=== PATIENT | female | born 2000 | race Two or more races ===

== ENCOUNTER 2022-05-21 00:48 | Observation (INO) ==
[2022-05-21] MEDS ORDERED: ACETAMINOPHEN 1,000 MG/100 ML VIAL IV STA (01:13)
[2022-05-21] MEDS ORDERED: ONDANSETRON INJ 2 MG/ML 2 ML VIAL IV STA ×2 (01:13→02:58)
[2022-05-21] MEDS ORDERED: MoRPHine SULFATE 4 MG/ML 1 ML CARP\\VIAL IV PRN (01:13)
[2022-05-21] MEDS ORDERED: SODIUM CHLORIDE 0.9% 1000ML 1,000 ML IV SCH (01:15)
[2022-05-21 01:46] LABS: Basophils # (auto) 0.06 K/uL (0-0.2); Basophils % (auto) 0.4 %; Hematocrit (blood only) 41.8 % (34.1-44.9); Hemoglobin 13.9 g/dl (12.0-16.0); Immature Granulocytes # (auto) 0.07 K/uL (0.00-0.02); Immature Granulocytes % (auto) 0.4 %; Lymphocytes # (auto) 0.94 K/uL (1.2-3.4); Lymphocytes % (auto) 5.8 %; Mean Corpuscular Hemoglobin 28.5 pg (25.0-34.0); Mean Corpuscular Hgb Conc 33.3 g/dL (32.0-36.0); Mean Corpuscular Volume 85.8 fL (80.0-100.0); Mean Platelet Volume 9.6 fL (9.4-12.3); Monocytes # (auto) 1.07 K/uL (0.24-0.82); Monocytes % (auto) 6.6 %; Neutrophils # (auto) 14.04 K/uL (1.4-6.5); Neutrophils % (auto) 86.8 %; Platelet Count 250 K/uL (130-400); RDW Coefficient of Variation 12.3 % (11.5-14.5); RDW Standard Deviation 38.7 fL (36.4-46.3); Red Blood Count 4.87 M/uL (3.93-5.22); White Blood Count 16.18 K/ul (4.8-10.8)
[2022-05-21 02:04] LABS: Appearance Urine Cloudy (Clear); Bacteria Urine Automated 1+ (Negative); Bilirubin Urine Negative (Negative); Blood Urine Negative (Negative); Color Urine Yellow; Epithelial Cell Urine Auto >30 /lpf (0-5); Glucose Urine UA Negative (Negative); Ketones Urine 2+ (Negative); Leukocyte Esterase Urine 2+ (Negative); Nitrite Urine Negative (Negative); Protein Urine 1+ (Negative); RBC Urine Automated 0-4 /hpf (0-4); Urobilinogen Urine Negative (Negative); WBC Urine Automated >30 /hpf (0-5)
[2022-05-21 02:09] LABS: Albumin Globulin Ratio 1.3 (0.9-2); Albumin Level 4.4 gm/dl (3.4-5.0); BUN Creatinine Ratio 8.2 (10-20); Bilirubin,Total 0.6 mg/dl (0.2-1.0); Calcium 9.6 mg/dl (8.5-10.1); Est GFR (African American) 97.4 ml/min; Est GFR (Non-African American) 84.1 ml/min; Globulin 3.4 gm/dl (2.5-4.0); Potassium 4.1 mmol/L (3.5-5.1); Total Protein 7.8 gm/dl (6.0-8.3)
[2022-05-21 02:14] LABS: Pregnancy Test, Serum Negative (Negative)
[2022-05-21 02:23] LABS: Procalcitonin 0.09 ng/ml (0-0.5)
[2022-05-21 02:29] LABS: Amphetamines+Metham, Urine Neg (Neg); Barbiturates, Urine Neg (Neg); Benzodiazepine, Urine Neg (Neg); Cocaine, Urine Neg (Neg); MDMA (Ecstacy), Urine Neg (Neg); Methadone, Urine Neg (Neg); Opiate, Urine Neg (Neg); Phencyclidine, Urine Neg (Neg)
[2022-05-21 03:06] LABS: Influenza A virus by PCR Negative (Neg); Influenza B virus by PCR Negative (Neg); RSV by PCR Negative (Neg); SARS CoV2 RNA(COVID-19) Ceph NEGATIVE (Negative)
[2022-05-21] MEDS ORDERED: OPTIRAY 350 100ml IV ONE (03:21)
--- NOTE | 2022-05-21 03:31 | Emergency Department Note ---
History of Present Illness General Chief complaint: Abdominal Pain Stated complaint: SEVERE ABDOMINAL PAIN Time Seen by Provider: 05/21/22 00:55 History of Present Illness Maximum Pain Intensity: 3 This is a 21-year-old female presenting to the emergency department for evaluation of lower abdominal pain for the past 1 day. The patient states that she initially started with some low-grade fever symptoms about 3 days ago, and did not have significant relief with [id number]-[id number] medication. She has not had nausea or vomiting. She feels like she is using the bathroom as normal. No vaginal irritation, drainage, or discharge. She does not have a history of abdominal surgery. She rates her discomfort a 3/10. Home Medications Medication Instructions Recorded Confirmed Type norethindrone 1 mg-ethinyl 1 tab PO DAILY 05/21/22 05/21/22 History estradiol 35 mcg tablet (Alyacen) Allergies Allergy/AdvReac Type Severity Reaction Status Date / Time amoxicillin Allergy Intermediate Rash Verified 05/21/22 01:08 benzoyl peroxide Allergy Intermediate FACE SWELLS Verified 05/21/22 01:08 FRUITS & VEGETABLES Allergy Unknown ORAL Uncoded 05/21/22 01:08 ALLERGY SYNDROME Past Med/Surg History Medical History No significant past medical history Surgical History No significant past surgical history Social History Smoking Status: Never smoker Preferred Language: [place] African Feels Safe at Home: Yes Review of Systems A total of 10 systems reviewed and were otherwise negative Physical Exam Vital Signs Vital Signs - 24 hr 05/21/22 00:51 05/21/22 03:34 Temperature 37.9 C H Temperature Source Oral Pulse Rate 119 H Pulse Rate [Apical] 90 Respiratory Rate 20 16 Respiratory Effort / Characteristics Non-Labored Spontaneous Non-Labored Spontaneous Respiratory Depth Normal Normal Respiratory Pattern Regular Blood Pressure 119/76 Blood Pressure [Right Arm] 115/62 Blood Pressure Mean 90 Blood Pressure Mean [Right Arm] 79 Pulse Oximetry 100 97 Oxygen Delivery Method Room Air Room Air Sepsis Recent Fever Within 48 Hours Yes Sepsis New/Unexplained Change in Mental Status N/A Sepsis Action Taken by Nursing No Action Required VITALS: Vitals are noted on the nurse's note and reviewed by myself. Vital signs with fever and tachycardia GENERAL: Well-developed, well-nourished, white female, who is in no acute distress and resting comfortably. Patient is cooperative with the examination. HEAD: Normocephalic atraumatic. NECK: Supple without nuchal rigidity. No lymphadenopathy. No thyromegaly. Cervical spine is nontender. HEART: Regular rate and rhythm without murmurs gallops or rubs. LUNGS: Clear to auscultation bilaterally without wheezes, rales or rhonchi. No retractions or accessory muscle use. ABDOMEN: Positive normal bowel sounds x 4. Soft with mild tenderness in both the right lower and suprapubic regions. No left-sided tenderness or epigastric tenderness. No CVA tenderness. MUSCULOSKELETAL: No muscle atrophy, erythema, or edema noted. Full range of motion in all extremities. NEURO: Patient was alert and oriented to person place and time. CN II through XII grossly intact. Course Administered Medications Morphine Sulfate (Morphine Sulfate 4 Mg/Ml 1 Ml Carp\Vial) 4 mg IV Q30M PRN PRN Reason: Pain Stop: 06/04/22 01:12 Last Admin: 05/21/22 01:32 Dose: 4 mg Documented By: SHITAL Discontinued Medications Acetaminophen (Ofirmev) 1,000 mg in 100 mls @ 400 mls/hr IV NOW STA Stop: 05/21/22 01:27 Last Infusion: 05/21/22 03:26 Dose: 0 mls/hr Documented By: morning news anchor: 05/21/22 01:33 Dose: 400 mls/hr Documented By: SHITAL Sodium Chloride (Nss 1000ml) 1,000 mls @ 999 mls/hr IV .Q1H1M LUIGI Stop: 05/21/22 02:15 Last Infusion: 05/21/22 03:26 Dose: 0 mls/hr Documented By: morning news anchor: 05/21/22 01:32 Dose: 999 mls/hr Documented By: SHITAL Ioversol (Optiray 350 100ml) 100 ml IV ONCE ONE Stop: 05/21/22 03:22 Last Admin: 05/21/22 03:21 Dose: 86 ml Documented By: SHARI Ondansetron HCl (Ondansetron Inj 2 Mg/Ml 2 Ml Vial) 4 mg IV NOW STA Stop: 05/21/22 01:14 Last Admin: 05/21/22 01:34 Dose: 4 mg Documented By: SHITAL Ondansetron HCl (Ondansetron Inj 2 Mg/Ml 2 Ml Vial) 4 mg IV NOW Stop: 05/21/22 02:59 Last Admin: 05/21/22 03:02 Dose: 4 mg Documented By: SCAR Medical Decision Making Differential Diagnosis Differential diagnosis: Etiologies such as biliary colic, cholecystitis, hepatitis, pancreatitis, cardiac disease, pancreatitis, gastritis, peptic ulcer disease, appendicitis, cystitis, diverticulitis, mesenteric ischemia, inflammatory bowel disease, ileus, bowel obstruction, testicular/adnexal torsion, aortic pathology, loaiza gles, as well as others were considered Laboratory Data 05/21/22 01:30 05/21/22 01:30 Lab Results 05/21/22 05/21/22 05/21/22 Range/Units 01:16 01:16 01:24 WBC (4.8-10.8) K/ul RBC (3.93-5.22) M/uL Hgb (12.0-16.0) g/dl Hct (34.1-44.9) % MCV (80.0-100.0) fL MCH (25.0-34.0) pg MCHC (32.0-36.0) g/dL RDW Std Deviation (36.4-46.3) fL RDW Coeff of Martha (11.5-14.5) % Plt Count (130-400) K/uL MPV (9.4-12.3) fL Immature Gran % (Auto) % Neut % (Auto) % Lymph % (Auto) % [place] % (Auto) % Eos % (Auto) % Baso % (Auto) % Neut # (Auto) (1.4-6.5) K/uL Lymph # (Auto) (1.2-3.4) K/uL [place] # (Auto) (0.24-0.82) K/uL Eos # (Auto) (0-0.50) K/uL Baso # (Auto) (0-0.2) K/uL Immature Gran # (Auto) (0.00-0.02) K/uL Sodium (136-145) mmol/L Potassium (3.5-5.1) mmol/L Chloride (98-107) mmol/L Carbon Dioxide (21-32) mmol/L Anion Gap (3-11) BUN (6-23) mg/dl Creatinine (0.6-1.2) mg/dl Est Cr Clr Drug Dosing ml/min Est GFR ( Amer) ml/min Est GFR (Non-Af Amer) ml/min BUN/Creatinine Ratio (10-20) Glucose (70-99(Fasting)) mg/dl Lactate (0.4-2.0) mmol/L Calcium (8.5-10.1) mg/dl Total Bilirubin (0.2-1.0) mg/dl AST (13-39) U/L ALT (7-52) U/L Alkaline Phosphatase (34-104) U/L Total Protein (6.0-8.3) gm/dl Albumin (3.4-5.0) gm/dl Globulin (2.5-4.0) gm/dl Albumin/Globulin Ratio (0.9-2) Lipase (11-82) U/L Procalcitonin (0-0.5) ng/ml HCG, Qual (Negative) Urine Color Yellow Urine Appearance Cloudy A (Clear) Urine pH 6.0 (4.5-7.5) Ur Specific [place] 1.020 (1.000-1.030) Urine Protein 1+ H (Negative) Urine Glucose (UA) Negative (Negative) Urine Ketones 2+ H (Negative) Urine Blood Negative (Negative) Urine Nitrite Negative (Negative) Urine Bilirubin Negative (Negative) Urine Urobilinogen Negative (Negative) Ur Leukocyte Esterase 2+ H (Negative) Urine WBC (Auto) >30 H (0-5) /hpf Urine RBC (Auto) 0-4 (0-4) /hpf U Hyaline Cast (Auto) 10-30 H (0-5) /lpf U Epithel Cells (Auto) >30 H (0-5) /lpf Urine Bacteria (Auto) 1+ H (Negative) Urine Opiates Screen Neg (Neg) Ur Methadone, Qual Neg (Neg) Urine Barbiturates Neg (Neg) Ur Phencyclidine (PCP) Neg (Neg) U Amphetamin/Meth Scrn Neg (Neg) MDMA (Ecstasy) Screen Neg (Neg) U Benzodiazepines Scrn Neg (Neg) Ur Cocaine Metabolite Neg (Neg) U Marijuana (THC) Screen Neg (Neg) SARS-CoV-2 (PCR) NEGATIVE (Negative) Influenza Type A (PCR) Negative (Neg) Influenza Type B (PCR) Negative (Neg) RSV (RT-PCR) Negative (Neg) 05/21/22 05/21/22 05/21/22 Range/Units 01:30 01:30 01:30 WBC 16.18 H (4.8-10.8) K/ul RBC 4.87 (3.93-5.22) M/uL Hgb 13.9 (12.0-16.0) g/dl Hct 41.8 (34.1-44.9) % MCV 85.8 (80.0-100.0) fL MCH 28.5 (25.0-34.0) pg MCHC 33.3 (32.0-36.0) g/dL RDW Std Deviation 38.7 (36.4-46.3) fL RDW Coeff of Martha 12.3 (11.5-14.5) % Plt Count 250 (130-400) K/uL MPV 9.6 (9.4-12.3) fL Immature Gran % (Auto) 0.4 % Neut % (Auto) 86.8 % Lymph % (Auto) 5.8 % [place] % (Auto) 6.6 % Eos % (Auto) 0.0 % Baso % (Auto) 0.4 % Neut # (Auto) 14.04 H (1.4-6.5) K/uL Lymph # (Auto) 0.94 L (1.2-3.4) K/uL [place] # (Auto) 1.07 H (0.24-0.82) K/uL Eos # (Auto) 0.00 (0-0.50) K/uL Baso # (Auto) 0.06 (0-0.2) K/uL Immature Gran # (Auto) 0.07 H (0.00-0.02) K/uL Sodium 136 (136-145) mmol/L Potassium 4.1 (3.5-5.1) mmol/L Chloride 102 (98-107) mmol/L Carbon Dioxide 26 (21-32) mmol/L Anion Gap 8 (3-11) BUN 8 (6-23) mg/dl Creatinine 0.97 (0.6-1.2) mg/dl Est Cr Clr Drug Dosing 90.0 ml/min Est GFR ( Amer) 97.4 ml/min Est GFR (Non-Af Amer) 84.1 ml/min BUN/Creatinine Ratio 8.2 L (10-20) Glucose 118 H (70-99(Fasting)) mg/dl Lactate 0.7 (0.4-2.0) mmol/L Calcium 9.6 (8.5-10.1) mg/dl Total Bilirubin 0.6 (0.2-1.0) mg/dl AST 12 L (13-39) U/L ALT 9 (7-52) U/L Alkaline Phosphatase 62 (34-104) U/L Total Protein 7.8 (6.0-8.3) gm/dl Albumin 4.4 (3.4-5.0) gm/dl Globulin 3.4 (2.5-4.0) gm/dl Albumin/Globulin Ratio 1.3 (0.9-2) Lipase 5 L (11-82) U/L Procalcitonin (0-0.5) ng/ml HCG, Qual (Negative) Urine Color Urine Appearance (Clear) Urine pH (4.5-7.5) Ur Specific [place] (1.000-1.030) Urine Protein (Negative) Urine Glucose (UA) (Negative) Urine Ketones (Negative) Urine Blood (Negative) Urine Nitrite (Negative) Urine Bilirubin (Negative) Urine Urobilinogen (Negative) Ur Leukocyte Esterase (Negative) Urine WBC (Auto) (0-5) /hpf Urine RBC (Auto) (0-4) /hpf U Hyaline Cast (Auto) (0-5) /lpf U Epithel Cells (Auto) (0-5) /lpf Urine Bacteria (Auto) (Negative) Urine Opiates Screen (Neg) Ur Methadone, Qual (Neg) Urine Barbiturates (Neg) Ur Phencyclidine (PCP) (Neg) U Amphetamin/Meth Scrn (Neg) MDMA (Ecstasy) Screen (Neg) U Benzodiazepines Scrn (Neg) Ur Cocaine Metabolite (Neg) U Marijuana (THC) Screen (Neg) SARS-CoV-2 (PCR) (Negative) Influenza Type A (PCR) (Neg) Influenza Type B (PCR) (Neg) RSV (RT-PCR) (Neg) 05/21/22 Range/Units 01:30 WBC (4.8-10.8) K/ul RBC (3.93-5.22) M/uL Hgb (12.0-16.0) g/dl Hct (34.1-44.9) % MCV (80.0-100.0) fL MCH (25.0-34.0) pg MCHC (32.0-36.0) g/dL RDW Std Deviation (36.4-46.3) fL RDW Coeff of Martha (11.5-14.5) % Plt Count (130-400) K/uL MPV (9.4-12.3) fL Immature Gran % (Auto) % Neut % (Auto) % Lymph % (Auto) % [place] % (Auto) % Eos % (Auto) % Baso % (Auto) % Neut # (Auto) (1.4-6.5) K/uL Lymph # (Auto) (1.2-3.4) K/uL [place] # (Auto) (0.24-0.82) K/uL Eos # (Auto) (0-0.50) K/uL Baso # (Auto) (0-0.2) K/uL Immature Gran # (Auto) (0.00-0.02) K/uL Sodium (136-145) mmol/L Potassium (3.5-5.1) mmol/L Chloride (98-107) mmol/L Carbon Dioxide (21-32) mmol/L Anion Gap (3-11) BUN (6-23) mg/dl Creatinine (0.6-1.2) mg/dl Est Cr Clr Drug Dosing ml/min Est GFR ( Amer) ml/min Est GFR (Non-Af Amer) ml/min BUN/Creatinine Ratio (10-20) Glucose (70-99(Fasting)) mg/dl Lactate (0.4-2.0) mmol/L Calcium (8.5-10.1) mg/dl Total Bilirubin (0.2-1.0) mg/dl AST (13-39) U/L ALT (7-52) U/L Alkaline Phosphatase (34-104) U/L Total Protein (6.0-8.3) gm/dl Albumin (3.4-5.0) gm/dl Globulin (2.5-4.0) gm/dl Albumin/Globulin Ratio (0.9-2) Lipase (11-82) U/L Procalcitonin 0.09 (0-0.5) ng/ml HCG, Qual Negative (Negative) Urine Color Urine Appearance (Clear) Urine pH (4.5-7.5) Ur Specific [place] (1.000-1.030) Urine Protein (Negative) Urine Glucose (UA) (Negative) Urine Ketones (Negative) Urine Blood (Negative) Urine Nitrite (Negative) Urine Bilirubin (Negative) Urine Urobilinogen (Negative) Ur Leukocyte Esterase (Negative) Urine WBC (Auto) (0-5) /hpf Urine RBC (Auto) (0-4) /hpf U Hyaline Cast (Auto) (0-5) /lpf U Epithel Cells (Auto) (0-5) /lpf Urine Bacteria (Auto) (Negative) Urine Opiates Screen (Neg) Ur Methadone, Qual (Neg) Urine Barbiturates (Neg) Ur Phencyclidine (PCP) (Neg) U Amphetamin/Meth Scrn (Neg) MDMA (Ecstasy) Screen (Neg) U Benzodiazepines Scrn (Neg) Ur Cocaine Metabolite (Neg) U Marijuana (THC) Screen (Neg) SARS-CoV-2 (PCR) (Negative) Influenza Type A (PCR) (Neg) Influenza Type B (PCR) (Neg) RSV (RT-PCR) (Neg) Imaging Data Radiologist's Impression: Preliminary Findings Only See Final Report For Complete Findings CT ABDOMEN & PELVIS With Contrast: Mildly enlarged fluid-filled appendix measuring 9 mm. However there is no surrounding inflammation in these findings are equivocal for acute appendicitis. Vague low density in the inferior liver is stable from prior CT of 01/17/2022 Radiologist:Wale Mcclain M.D. [facility] Narrative Physical exam and history were performed. Nursing notes, EMR, and Medication List were personally reviewed. No social concerns were identified as barriers to patients care. Patient appears to have lower abdominal pain bringing her to the ER. She does have fever and tachycardia on arrival. IV access was established and labs were obtained. She was hydrated and medicated as above. Patient was prepped for CT scan with IV and oral contrast. Patient's blood work is as above and was reviewed. She does have an elevated white blood cell count of 16,000. She does not have a significant anemia or gross electrolyte imbalance. Glucose is 118. Lipase and transaminases are not diagnostic. She is not . Lactic is negative with blood cultures pending. Procalcitonin is normal. Urine is with ketones, esterase, white cells, and a large amount of epithelial cells. Culture is pending. Flu, COVID, and RSV testing is negative. As the patient was preparing for oral contrast she had a large amount of emesis and was given additional Zofran. At this time she was sent to CT scan as she would not be able to tolerate additional oral contrast. CT was reviewed by myself and radiology and is concerning for appendicitis. The appendix is 9 mm and radiology believes this is equivocal. Based on the patient's elevated white count, fever, and clinical exam findings I did reach out to the on-call surgical team. The patient was evaluated at bedside by surgical team. Please see their dictation for further patient course, plan, and patient disposition. The chart was completed utilizing [employer] Speech Voice Recognition Software. Grammatical errors, random word insertions, pronoun errors, and incomplete sentences are an occasional consequence of this system due to software limitations, ambient noise, and hardware issues. Any formal questions or concerns about the content, text, or information contained within the body of this dictation should be directly addressed to the provider for clarification. . Impression & Plan Appendicitis, Abdominal pain, RLQ, Fever Discharge Plan Visit Data Chief Complaint: Abdominal Pain Stated Complaint: SEVERE ABDOMINAL PAIN ED Provider: Coty Lezama ED Midlevel Provider: Pablo Canada Discharge Problem: Appendicitis, Abdominal pain, RLQ, Fever Forms Stand Alone Forms: [facility] [employer] Prescriptions Prescriptions: No Action Alyacen (28) 1-35 mg-mcg tablet 1 tab PO DAILY Referrals Referrals: [facility],[facility] [Primary Care Provider] -
[2022-05-21] MEDS ORDERED: ONDANSETRON INJ 2 MG/ML 2 ML VIAL IV PRN ×2 (04:26→12:23)
[2022-05-21] MEDS ORDERED: ACETAMINOPHEN 1,000 MG/100 ML VIAL IV PRN (04:26)
[2022-05-21] MEDS ORDERED: MoRPHine SULFATE 2 MG/ML CARP IV PRN (04:26)
--- NOTE | 2022-05-21 04:26 | History & Physical Report ---
Date of Service May 21, 2022 Assessment & Plan (1) Appendicitis: Plan: Due to the findings on patient's imaging along with her labs and clinical presentation we will admit her to the hospital proceeding as follows: We will implement n.p.o. status We will provide analgesics we will provide antiemetics We will initiate antibiotics. I will utilize Cipro and Flagyl as the patient has a unspecified reaction to amoxicillin. -We will provide IV fluid for hydration We will tenably plan on having the patient undergo an appendectomy with Dr. Anderson on 05/21/2022. 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 Patient notes that the pain began approximately 1 day ago and was in a generalized fashion mostly over her lower abdomen but is since now shifted mostly to the right lower quadrant. Patient notes that she has had associated nausea and vomiting. She also notes a low-grade fever. She has tried ryxx-grh-pfwahfw analgesics without relief and does not note any other modifying factors other than it hurts with certain movements. She denies any prior abdominal surgeries. She notes her most recent solid oral intake was approximately 6:00 PM on 05/20/2022 but she has had some water approximately 3 and half hours ago. Since arrival to the emergency department the patient has had labs and imaging which I independent reviewed. CT scan of the abdomen pelvis showed a mildly enlarged and fluid-filled appendix measuring 9 mm. No surrounding inflammation was noted and an acute appendicitis could not be ruled out on the study. Labs included CBC her white blood cell count was elevated 16.8. Hemoglobin, hematocrit, and platelet count were all within normal range. Chemistry profile showed sodium and potassium were normal. BUN and creatinine were also noted to be normal. There is no significant elevation of LFTs or lipase. A test was noted to be negative. Urinalysis did show greater than 30 white blood cells per high-power field and 1+ bacteria. Leukocyte esterase was 2+. Nitrites were negative. A COVID test was noted to be negative as well as serologies for influenza A, B, and RSV. A toxicology screen was negative for substances tested. The patient was noted to have low-grade fever in the emergency department of 37.9. At the time of my visit with the patient she was resting comfortably in bed in no distress. Allergies Allergy/AdvReac Type Severity Reaction Status Date / Time amoxicillin Allergy Intermediate Rash Verified 05/21/22 01:08 benzoyl peroxide Allergy Intermediate FACE SWELLS Verified 05/21/22 01:08 FRUITS & VEGETABLES Allergy Unknown ORAL Uncoded 05/21/22 01:08 ALLERGY SYNDROME Home Medications Medication Instructions Recorded Confirmed Type norethindrone 1 mg-ethinyl 1 tab PO DAILY 05/21/22 05/21/22 History estradiol 35 mcg tablet (Alyacen) Past Med/Surg History Medical History No significant past medical history Surgical History No significant past surgical history Social History Smoking Status: Never smoker Hx Alcohol Use: Yes Hx Substance Use: No Preferred Language: Rwandan Communication Ability: Effective Physicians And Surgeons Required: No Beliefs That Will Affect Care: None Current Living Situation Comment: apartment Other Information That Helps Us Care for You: No Feels Safe at Home: Yes Safety Concerns: Feels Safe At This Time Assistive Devices: Glasses Review of Systems Constitutional: + fever; no chills Eyes: no eye pain Ear, Nose, Mouth, Throat: no ear pain Respiratory: no cough Cardiovascular: no chest pain Gastrointestinal: + abdominal pain, + nausea and + vomiting Genitourinary: no dysuria Musculoskeletal: no back pain Integumentary: no rash Neurologic: no localized weakness Physical Exam Constitutional: WD/WN, vitals as above Eyes: no conjunctival abnormality ENMT: Ears: no hearing impairment and no external ear abnormality Mouth: no oropharynx abnormality Neck: trachea midline Respiratory: normal respiratory effort; no respiratory distress and no labored breathing Cardiovascular: Rate/Rhythm: regular rate and regular rhythm Vessels: dorsalis pedis pulses present and radial pulses present Gastrointestinal (Abdomen): Abdomen is soft and nondistended. It is nonrigid. Patient did have pain with palpation in the right lower quadrant over McBurney's point with some slight rebound tenderness. Musculoskeletal: No calf tenderness clinical coordinator please Skin: no rashes Neurologic: moves all extremities Psychiatric: A+Ox3, euthymic affect Results & Data Results & Data ([facility]) Vital Signs (Past 12 Hours) Vital Signs Temp Pulse Pulse Resp BP BP Pulse Ox 05/21/22 03:34 90 16 115/62 97 05/21/22 00:51 37.9 C H 119 H 20 119/76 100 O2 Del Method 05/21/22 03:34 Room Air 05/21/22 00:51 Room Air Supervising Physician Co-Signing Physician Notes Patient seen examined, labs image reviewed, agree with above. 21-year-old female with acute appendicitis on CT and exam. On exam she is afebrile stable vitals. Her abdomen is soft, tender to palpation in the right lower quadrant specifically at McBurney's point with localized guarding. CT personally viewed and interpreted and agree with the assessment of acute appendicitis without evidence of perforation. Plan for laparoscopic appendectomy Risk the procedure were discussed to include but not limited to bleeding, infection, open surgery, damage surrounding structures, need for future more extensive surgery, normal appendix, abscess, and the risk of anesthesia Likely discharge this afternoon Return precautions, activity restrictions, and wound care instructions given Patient will follow up in 2 weeks in general surgery clinic PG Care Time/CCT Total # of Minutes Spent Total Time Spent with Patient: Total time spent is greater than 50% in coordination of care (as documented) at patient's floor/unit and/or counseling patient: Coding Level of Care Code 65488 INT INP/OBS CARE 75MIN Diagnoses Appendicitis K37
[2022-05-21] MEDS ORDERED: metroNIDAZOLE 500 MG/100 ML BAG IV STA (04:47)
[2022-05-21] MEDS ORDERED: CIPROFLOXACIN / D5W 400 MG/200 ML BAG IV STA (04:48)
[2022-05-21] MEDS: LACTATED RINGER'S 1,000 ML IV SCH ×2 (05:21→17:07)
--- NOTE | 2022-05-21 07:47 | CT Scan Report ---
ABDOMEN AND PELVIS CT WITH IV AND ORAL CONTRAST CT DOSE: 313.53 mGy.cm HISTORY: RLQ and suprapubic pain, fever TECHNIQUE: Multiaxial CT images of the abdomen and pelvis were performed following the use of intrave nous and oral contrast. A dose lowering technique was utilized adhering to the principles of ALARA. COMPARISON STUDY: Abdomen and pelvis CT 01/17/2022. FINDINGS: The lung bases are clear. No pneumoperitoneum. No pneumatosis. Mild S-shaped scoliosis of t he thoracolumbar spine. No acute fractures identified. The appendix is identified within the right lo wer quadrant and is distended and filled with fluid. The appendix measures up to 1 cm in diameter. Th is is new from the prior study. Therefore, these findings are consistent with acute appendicitis. The bladder, uterus, bilateral adnexa are unremarkable. Subtle patchy hypodense area within segment 5 of the liver remain stable. This measures approximately 2.7 cm and is best seen image 191. The spleen, adrenal glands, pancreas, gallbladder, and kidneys are unremarkable. No hydronephrosis. No retroperit bhat lymphadenopathy. Normal caliber abdominal aorta. No evidence for bowel obstruction. IMPRESSION: 1. Fluid-filled and distended appendix measuring up to 1 cm which is new from the prior study. Theref ore, this is consistent with an acute appendicitis. 2. No change in the indeterminate ill-defined patchy hypodensity within the right hepatic lobe measur ing approximately 2.7 cm. 3. This report was discussed with Dr. Rodrigez at 7:25 AM on 05/21/2022. ACT 112: Negative or not required by law. Electronically signed by: Ascencion Zuñiga M.D. 05/21/2022 7:45 AM
[2022-05-21] MEDS: ORAL CONTRACEPTIVE~ORDER AWAITING ACTION SCH ×2 (08:14→16:14)
--- NOTE | 2022-05-21 09:59 | Anesthesiology Consultation ---
Date of Service May 21, 2022 Assessment & Plan Chart Review Chart Review: Acceptable Risk for Surgery and Patient NOT seen in Pre Admission Testing History Surgery Operation Date: 05/21/22 08:20 Proposed Procedures p Laparoscopic Appendectomy - Serafin Anderson DO, FACS Height/Weight Height: 5 ft 7 in Weight: 69.8 kg Allergies Allergy/AdvReac Type Severity Reaction Status Date / Time amoxicillin Allergy Intermediate Rash Verified 05/21/22 01:08 benzoyl peroxide Allergy Intermediate FACE SWELLS Verified 05/21/22 01:08 FRUITS & VEGETABLES Allergy Unknown ORAL Uncoded 05/21/22 01:08 ALLERGY SYNDROME Medications Home Medications Medication Instructions Recorded Confirmed Last Taken norethindrone 1 mg-ethinyl 1 tab PO DAILY 05/21/22 05/21/22 05/20/22 estradiol 35 mcg tablet (Alyacen) Active Medications Generic Name Dose Route Start Last Admin Trade Name Freq PRN Reason Stop Dose Admin Lactated Ringer's 1,000 mls @ 100 mls/hr 05/21/22 04:30 05/21/22 05:21 Lr IV 06/20/22 04:29 100 mls/hr .Q10H LUIGI Administration Miscellaneous 1 each 05/21/22 08:00 05/21/22 08:14 Oral Contraceptive~Order Awaiting Action N/A 06/20/22 07:59 Not Given QS LUIGI Morphine Sulfate 2 mg 05/21/22 04:26 05/21/22 06:21 Morphine Sulfate 2 Mg/Ml Carp IV 06/04/22 04:25 2 mg Q3H PRN Administration Pain Past Medical History Medical History No significant past medical history Past Surgical History Surgical History No significant past surgical history Social History Smoking Status: Never smoker Hx Alcohol Use: Yes alcohol intake frequency: holidays/special occasions only Hx Substance Use: No Physical Exam Vital Signs Last Vital Signs Temp 36.6 C 05/21/22 07:07 Pulse 92 H 05/21/22 07:07 Resp 16 05/21/22 07:07 BP 103/67 05/21/22 07:07 Pulse Ox 99 05/21/22 07:07 O2 Del Method 05/21/22 07:07 Testing Laboratory Results 05/21/22 01:30 05/21/22 01:30 Urine Color Yellow 05/21/22 01:16 Urine Appearance Cloudy (Clear) A 05/21/22 01:16 Urine pH 6.0 (4.5-7.5) 05/21/22 01:16 Ur Specific Gould 1.020 (1.000-1.030) 05/21/22 01:16 Urine Protein 1+ (Negative) H 05/21/22 01:16 Urine Glucose (UA) Negative (Negative) 05/21/22 01:16 Urine Ketones 2+ (Negative) H 05/21/22 01:16 Urine Nitrite Negative (Negative) 05/21/22 01:16 Ur Leukocyte Esterase 2+ (Negative) H 05/21/22 01:16 Urine WBC (Auto) >30 /hpf (0-5) H 05/21/22 01:16 Urine RBC (Auto) 0-4 /hpf (0-4) 05/21/22 01:16 U Hyaline Cast (Auto) 10-30 /lpf (0-5) H 05/21/22 01:16 U Epithel Cells (Auto) >30 /lpf (0-5) H 05/21/22 01:16 Urine Bacteria (Auto) 1+ (Negative) H 05/21/22 01:16
[2022-05-21] MEDS ORDERED: ROCURONIUM BROMIDE 10 MG/ML 5 ML VIAL IV ONE (11:59)
[2022-05-21] MEDS ORDERED: LIDOCAINE 2% MPF LOCAL 5 ML VIAL INFIL ONE (11:59)
[2022-05-21] MEDS ORDERED: MIDAZOLAM HCL 1 MG/ML 2ML VIAL ONE (11:59)
[2022-05-21] MEDS ORDERED: NEOSTIGMINE METHYLSULFATE 1 MG/ML 10ML VIAL ONE (11:59)
[2022-05-21] MEDS ORDERED: fentaNYL citrate 100 MCG/2 ML VIAL ONE ×2 (11:59→13:17)
[2022-05-21] MEDS ORDERED: GLYCOPYRROLATE 0.2 MG/ML VIAL ONE (11:59)
[2022-05-21] MEDS ORDERED: PROPOFOL IV EMULSION 10 MG/ML 20 ML VIAL IV ONE (11:59)
[2022-05-21] MEDS ORDERED: BUPIVACAINE 0.5 % 5 MG/1 ML MPF 30ML VIAL ONE (12:09)
[2022-05-21] MEDS ORDERED: HYDROmorphone INJ 2 MG/ML SYR/VIAL IV PRN (12:23)
[2022-05-21] MEDS ORDERED: fentaNYL citrate 100 MCG/2 ML VIAL IV PRN (12:23)
[2022-05-21] MEDS ORDERED: ePHEDrine sulfate 50 MG/ML AMP IV PRN (12:23)
[2022-05-21] MEDS ORDERED: ATROPINE SULFATE 0.1 MG/ML 10ML SYR IV PRN (12:23)
[2022-05-21] MEDS ORDERED: KETOROLAC 30 MG/ML VIAL ONE (13:31)
--- NOTE | 2022-05-21 13:36 | Operative Report ---
PG Post Operative Report Pre & Post Diagnosis Operation Date: 05/21/22 08:20 Pre-Op Diagnosis: Appendicitis Post-Op Diagnosis: Appendicitis I identified the patient and participated in the time-out.: Yes Procedure Operation Date: 05/21/22 08:20 Actual Procedures p Laparoscopic Appendectomy(Not Applicable) - Serafin Anderson DO, FACS Surgeon Serafin Anderson DO, EVITA Irrigator Taylor Gaytan Estimated Blood Loss 2 Findings Consistent with Post-Op Diagnosis Acute, nonperforated appendicitis. Good hemostasis. Specimens Appendix Anesthesia Type General Complications none Disposition Accompanied Patient To Recovery: No Disposition: Recovery Room Indications 21-year-old female presented with signs symptoms of acute appendicitis without evidence of perforation, plan for laparoscopic appendectomy. The risks of the procedure were discussed, all questions were answered, and the patient agreed to proceed with surgery as planned. Description of Procedure The patient was properly identified, consented, and taken to the operating room where she was placed in the supine position. General endotracheal anesthesia was induced. SCDs and a safety belt were placed. Preoperative antibiotics were administered. A Javier catheter was not placed. The patient's abdomen was prepped and draped in the standard sterile fashion. Surgical timeout was performed and all parties were in agreement that this was the correct patient and procedure to be performed and we continued as planned. A curvilinear infraumbilical incision was made with electrocautery and deepened down to the fascia with blunt dissection. The base of the umbilicus was grasped with a Sanaz and elevated towards the ceiling. An incision was made in the midline fascia with a knife and entry into the peritoneum was confirmed. Stay suture of 0 Vicryl was placed and a Alas trocar was inserted. The abdomen was insufflated with carbon dioxide which the patient tolerated without incident. The laparoscope was inserted and no damage from initial trocar placement was noted, no gross abnormalities were noted within the 4 quadrants the abdomen. 3 mm ports were then placed in the left lower quadrant with care not to damage the epigastric vessels, and in the suprapubic midline with care not to damage the bladder. The patient was placed in Trendelenburg position and rotated towards the left. The small bowel was swept away from the right lower quadrant. The cecum was grasped with an atraumatic grasper exposing the appendix. The appendix was moderately to significantly inflamed and there was no evidence of perforation. There was no significant fluid in the pelvis. A window was created between the base of the appendix and the mesoappendix. A albarran loaded endoscopic stapler was then used to divide the appendix at its base. A albarran load was then used to divide the mesoappendix. Hemostasis was good. The appendix was placed in an Endo Catch bag and removed through the umbilical port site. The right lower quadrant and pelvis was irrigated and hemostasis was found to be good. 5 mm trochars were removed under direct visualization and the abdomen was allowed to collapse. The umbilical port site fascia was closed with 0 Vicryl suture. The wound was irrigated, and the skin of the umbilical port was closed with 4-0 Monocryl subcuticular suture. Dermabond was used to close the 3 mm ports, and Dermabond was placed over the umbilical wound. The patient was extubated in the operating room and taken to the PACU where she recovered without apparent incident. All sponge, instrument and needle counts were correct at the conclusion of the procedure. The patient tolerated the procedure well. The physician's administrative personal assistant was present and scrubbed for the entirety of the procedure. She was critical in positioning the patient, prepping and draping, retraction and exposure, driving the laparoscope, removal of the appendix, closure the incisions, placement the dressings. I attest to the content of the Intraoperative Record and any orders documented therein. Any exceptions are noted below.
--- NOTE | 2022-05-21 14:26 | Anesthesiology Progress Note ---
Date of Service May 21, 2022 Anesthesia Post Procedure Vital Signs Vital Signs: Temp Pulse Pulse Pulse Resp BP BP 05/21/22 14:20 76 20 114/48 L 05/21/22 14:10 75 16 102/58 L 05/21/22 14:00 77 17 104/52 L 05/21/22 13:52 36.4 C L 96 H 16 108/62 05/21/22 12:19 36.7 C 105 H 20 115/71 05/21/22 07:07 36.6 C 92 H 16 103/67 05/21/22 05:32 36.8 C 91 H 18 110/68 05/21/22 04:58 83 13 118/66 05/21/22 03:34 90 16 115/62 05/21/22 00:51 37.9 C H 119 H 20 119/76 Pulse Ox O2 Del Method O2 Flow Rate 05/21/22 14:20 97 Room Air 05/21/22 14:10 100 Room Air 05/21/22 14:00 100 Oxymask 4 05/21/22 13:52 100 Oxymask 6 05/21/22 12:19 99 Room Air 05/21/22 07:07 99 Room Air 05/21/22 05:32 98 Room Air 05/21/22 04:58 97 Room Air 05/21/22 03:34 97 Room Air 05/21/22 00:51 100 Room Air Pain Intensity Abdomen: Pain Intensity: 7 Transfer of Care Handoff Completed per policy Notes Mental Status: alert / awake / arousable Patient Amnestic to Procedure: Yes Nausea / Vomiting: adequately controlled Pain: adequately controlled Airway Patency, RR, SpO2: stable & adequate BP & HR: stable & adequate Hydration State: stable & adequate Anesthetic Complications: no major complications apparent
[2022-05-21] MEDS ORDERED: metroNIDAZOLE 500 MG/100 ML BAG IV SCH (14:30)
[2022-05-21] MEDS ORDERED: KETOROLAC TROMETHAMINE 15 MG/ML VIAL IV PRN (14:46)
[2022-05-21] MEDS ORDERED: oxyCODONE HCL IR 5 MG TAB (IMMEDIATE RELEASE) PO PRN ×2 (14:46)
[2022-05-21] MEDS ORDERED: CIPROFLOXACIN / D5W 400 MG/200 ML BAG IV SCH (17:00)
--- NOTE | 2022-05-23 08:27 | Discharge Summary ---
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 Patient notes that the pain began approximately 1 day ago and was in a generalized fashion mostly over her lower abdomen but is since now shifted mostly to the right lower quadrant. Patient notes that she has had associated nausea and vomiting. She also notes a low-grade fever. She has tried [id number] analgesics without relief and does not note any other modifying factors other than it hurts with certain movements. She denies any prior abdominal surgeries. She notes her most recent solid oral intake was approximately 6:00 PM on 05/20/2022 but she has had some water approximately 3 and half hours ago. Since arrival to the emergency department the patient has had labs and imaging which I independent reviewed. CT scan of the abdomen pelvis showed a mildly enlarged and fluid-filled appendix measuring 9 mm. No surrounding inflammation was noted and an acute appendicitis could not be ruled out on the study. Labs included CBC her white blood cell count was elevated 16.8. Hemoglobin, hematocrit, and platelet count were all within normal range. Chemistry profile showed sodium and potassium were normal. BUN and creatinine were also noted to be normal. There is no significant elevation of LFTs or lipase. A test was noted to be negative. Urinalysis did show greater than 30 white blood cells per high-power field and 1+ bacteria. Leukocyte esterase was 2+. Nitrites were negative. A COVID test was noted to be negative as well as serologies for influenza A, B, and RSV. A toxicology screen was negative for substances tested. The patient was noted to have low-grade fever in the emergency department of 37.9. At the time of my visit with the patient she was resting comfortably in bed in no distress. Principal Diagnosis acute appendicitis Discharge Data Allergies Allergy/AdvReac Type Severity Reaction Status Date / Time amoxicillin Allergy Intermediate Rash Verified 05/21/22 01:08 benzoyl peroxide Allergy Intermediate FACE SWELLS Verified 05/21/22 01:08 FRUITS & VEGETABLES Allergy Unknown ORAL Uncoded 05/21/22 01:08 ALLERGY SYNDROME Consultations 05/21/22 04:26 Consult General Surgery Stat Procedures Performed Operation Date: 05/21/22 08:20 Actual Procedures p Laparoscopic Appendectomy(Not Applicable) - Serafin Anderson DO, FACS Ordered Studies 05/21/22 01:13 CT abd pelvis oral and IV con Stat Hospital Course (1) Appendicitis: 21-year-old female admitted with signs and symptoms of acute appendicitis on 21 May 2022. She underwent an uncomplicated laparoscopic appendectomy later that day. She was returned to the medical surgical floor where she recovered without incident. At the time of discharge her pain was controlled, she was tolerating regular diet, had no issues. She was discharged to home the afternoon of 21 May 2022 with plans for follow-up in the general surgery clinic. Wound care instructions, activity restrictions, and return precautions were given prior to discharge. (2) History of laparoscopic appendectomy: Total Time Total Time Spent Total Time Spent (In Minutes): 30min Total Time Includes: Examination of the Patient and Medication Reconciliation Discharge Plan Discharge Items Patient Disposition: Home - Self-Care Reason For Visit: Acute appendicitis Discharge Diagnosis: Acute appendicitis status post laparoscopic appendectomy Condition on Discharge: Good Activity: Per Instructions section Lifting Comment: No lifting greater than 20 pounds for 2 weeks Bathing Comment: may shower starting 05/22/22; no soaking in tubs/pools Exercise/Sports: Gradually increase as tolerated Driving/Machine Use: no driving while taking narcotics for pain Non-emergency contact: Surgeon Call non-emergency contact if: you have any medication questions, your symptoms worsen, your pain is not controlled, your pain is concerning for you, you have a fever, your temperature is above 101.5, your wound has increased redness, your wound has increased drainage and your wound pain has increased Follow-up/Referrals: Serafin Anderson DO, EVITA [Physician] - 06/04/22 10:15 am (Please call to schedule follow up in clinic within 2 weeks) [facility] [Primary Care Provider] - (PLEASE FOLLOW UP WITH [facility] 7-10 BUSINESS DAYS.) Diet: Regular Addtl Attending Provider Instructions: You may purchase Tylenol and/or Ibuprofen over the counter if needed for additional pain control over the next few days. Take per manufacturers instruc tions Pending Studies at Discharge: Yes Studies:: surgical pathology Stand-Alone Forms: My [facility] Unight, Smoking Cessation Medications and DC Order Prescriptions: New oxycodone-acetaminophen [Percocet] 5-325 mg tablet 1 - 2 tab PO Q6H PRN (Reason: pain) Qty: 20 0RF Continued Alyacen (28) 1-35 mg-mcg tablet 1 tab PO DAILY Discharge Orders: Discharge Order (Routine); Ordered 05/21/22 Ordered By: Serafin Mart/Other Patient Handouts: What Is Appendicitis? Admission Data Admit Date/Time: 05/21/22 04:30 Attending Provider: Serafin Anderson Admit Provider: Serafin Anderson Primary Care Provider: [facility] Other Providers: Serafin Anderson Other Interventions: Discharge Summary Assessment (RN) Last Done: 05/21/22 17:05 Coding Level of Care Code INP/OBS EV SAME DAY LV 1,45MIN Diagnoses Appendicitis K37 History of laparoscopic appendectomy Z90.49
== END 2022-05-21 18:44 | disposition home or self-care (01) ==
LOC: ED 00:48 → 3N 04:30 → INTOOBSV 04:30 → 3N 04:58